=== PATIENT | female | born 1955 | race Caucasian/White ===

== ENCOUNTER 2022-07-30 14:05 | Inpatient (IN) | payer BC ==
[2022-07-30] MEDS ORDERED: Ondansetron 4 MG/2 ML SDV IVPUSH ONE (14:44)
[2022-07-30] MEDS ORDERED: Sodium Chloride 0.9% 10 ML Syringe FLUSH PRN (14:44)
[2022-07-30] MEDS ORDERED: Sodium Chloride 0.9% 1,000 ML IV SCH (14:45)
[2022-07-30] MEDS ORDERED: Sodium Chloride 0.9% 10 ML Syringe FLUSH ONE (15:04)
[2022-07-30] MEDS ORDERED: Iopamidol 612 MG/ML 100 ML Bottle IVPUSH ONE (15:04)
[2022-07-30 16:26] LABS: CORONAVIRUS COVID-19 NAA NEGATIVE (NEGATIVE)
[2022-07-30] MEDS ORDERED: Sodium Chloride 0.9% 1,000 ML IV ONE ×2 (16:34→17:57)
[2022-07-30] MEDS: Potassium Chloride 10 MEQ in Premix Bag 1 BAG IV SCH ×5 (16:48→22:32)
[2022-07-30] MEDS ORDERED: cefTRIAXone 1 GM in Sodium Chloride 0.9% 100 ML IV ONE (17:59)
[2022-07-30] MEDS ORDERED: oxyCODONE 5 MG Tab PO PRN (18:47)
[2022-07-30] MEDS ORDERED: Ondansetron 4 MG/2 ML SDV IV PRN (18:47)
[2022-07-30] MEDS ORDERED: Potassium Chloride 20 MEQ Tab.ER PO ONE (19:56)
[2022-07-30] MEDS: Heparin Sodium 5,000 Units/ML Vial SUBCUT SCH (21:10)
[2022-07-31] MEDS: Potassium Chloride 10 MEQ in Premix Bag 1 BAG IV SCH ×5 (01:14→13:40)
[2022-07-31] MEDS: Heparin Sodium 5,000 Units/ML Vial SUBCUT SCH (04:37)
[2022-07-31] MEDS ORDERED: Potassium Chloride 20 MEQ Tab.ER PO ONE ×2 (06:15→16:30)
[2022-07-31] MEDS ORDERED: Heparin Sodium 5,000 Units/ML Vial IVPUSH ONE (06:20)
[2022-07-31] MEDS ORDERED: Heparin Sodium/D5W 25,000 UNITS/500 ML BAG IV SCH (06:30)
[2022-07-31] MEDS: atorvaSTATin 40 MG Tab PO SCH (08:37)
[2022-07-31] MEDS: cefTRIAXone 1 GM in Sodium Chloride 0.9% 100 ML IV SCH (17:12)
[2022-07-31] MEDS: Acetaminophen 325 MG Tab PO PRN (17:51)
[2022-07-31] MEDS: Formoterol/Mometasone 200-5 MCG 8.8 GM Inhaler IH SCH (20:15)
[2022-07-31] MEDS: Pantoprazole 40 MG Tab.CR PO SCH (20:50)
[2022-07-31] MEDS: Metoprolol Tartrate 25 MG Tab PO SCH (20:50)
[2022-08-01] MEDS: Acetaminophen 325 MG Tab PO PRN ×2 (03:18→14:40)
[2022-08-01] MEDS: Formoterol/Mometasone 200-5 MCG 8.8 GM Inhaler IH SCH ×2 (08:23→22:39)
[2022-08-01] MEDS: atorvaSTATin 40 MG Tab PO SCH (09:39)
[2022-08-01] MEDS: Potassium Chloride 20 MEQ Tab.ER PO SCH ×2 (09:41→21:59)
[2022-08-01] MEDS: Metoprolol Tartrate 25 MG Tab PO SCH ×2 (09:41→21:59)
[2022-08-01] MEDS: cefTRIAXone 1 GM in Sodium Chloride 0.9% 100 ML IV SCH (17:55)
[2022-08-01] MEDS: Pantoprazole 40 MG Tab.CR PO SCH (21:59)
[2022-08-02] MEDS: Formoterol/Mometasone 200-5 MCG 8.8 GM Inhaler IH SCH (08:51)
[2022-08-02] MEDS: atorvaSTATin 40 MG Tab PO SCH (09:18)
[2022-08-02] MEDS: Metoprolol Tartrate 25 MG Tab PO SCH (09:19)
[2022-08-02] MEDS ORDERED: Potassium Chloride 20 MEQ Tab.ER PO ONE (09:30)
== END 2022-08-02 13:10 | disposition home or self-care (01) | DRG 469 ==
LOC: JD.ED 14:05 → JD.MS 18:35
PROVIDERS: ADMIT Internal Medicine; ATTEND Internal Medicine
DX: N17.9 Acute kidney failure, unspecified (principal); K85.90 Acute pancreatitis without necrosis or infection, unspecified; E87.6 Hypokalemia; E86.0 Dehydration; I21.4 Non-ST elevation (NSTEMI) myocardial infarction; N18.4 Chronic kidney disease, stage 4 (severe); Z20.822 Contact with and (suspected) exposure to COVID-19; E78.5 Hyperlipidemia, unspecified; F17.210 Nicotine dependence, cigarettes, uncomplicated; Z79.52 Long term (current) use of systemic steroids
CPT/HCPCS: 0241U; 36415; 71045; 71045-26; 74177; 74177-26; 80048; 80053; 81001; 82977; 83690; 83735; 83880; 84478; 84484; 85025; 85027; 85730; 86140; 87040; 87086; 93005; 93010; 93307; 94640; 94760; 94761; 97110-GP; 97162-GP; 97166-GO; 97530-GO; 97530-GP; 97535-GO; 99285; A9270-GY; J0696; J1644; J2405; J3480; J3490; J7030; Q9967

== ENCOUNTER 2022-08-03 10:53 | Inpatient (IN) | payer BC ==
[2022-08-03] MEDS ORDERED: Sodium Chloride 0.9% 10 ML Syringe FLUSH PRN (11:15)
[2022-08-03] MEDS ORDERED: Ondansetron 4 MG/2 ML SDV IVPUSH ONE (11:42)
[2022-08-03] MEDS ORDERED: Sodium Chloride 0.9% 1,000 ML IV STA (11:42)
[2022-08-03] MEDS ORDERED: 50% Dextrose in Water 50 ML Syringe IVPUSH ONE (12:14)
[2022-08-03] MEDS: Potassium Chloride 10 MEQ in Premix Bag 1 BAG IV SCH ×6 (12:20→23:14)
[2022-08-03] MEDS: Heparin Sodium 5,000 Units/ML Vial SUBCUT SCH ×2 (16:00→22:13)
[2022-08-03] MEDS ORDERED: Albuterol 6.7 GM Inhaler INH SCH (18:00)
[2022-08-03] MEDS: Albuterol 6.7 GM Inhaler INH SCH (20:35)
[2022-08-03] MEDS: Formoterol/Mometasone 200-5 MCG 8.8 GM Inhaler IH SCH (20:36)
[2022-08-03] MEDS ORDERED: Famotidine 20 MG/2 ML SDV IVPUSH SCH (21:00)
[2022-08-03] MEDS ORDERED: Sodium Chloride 0.9% 500 ML IV SCH (21:00)
[2022-08-03] MEDS: HYDROmorphone 0.5 MG/0.5 ML Syringe IVPUSH PRN (21:16)
[2022-08-04] MEDS: Dextrose 5% in Water 1,000 ML IV SCH ×3 (00:51→20:45)
[2022-08-04] MEDS: Potassium Chloride 10 MEQ in Premix Bag 1 BAG IV SCH ×2 (01:34→03:28)
[2022-08-04] MEDS: Albuterol 6.7 GM Inhaler INH SCH ×4 (03:36→20:16)
[2022-08-04] MEDS: HYDROmorphone 0.5 MG/0.5 ML Syringe IVPUSH PRN ×2 (05:48→17:25)
[2022-08-04] MEDS: Formoterol/Mometasone 200-5 MCG 8.8 GM Inhaler IH SCH ×2 (08:15→20:15)
[2022-08-04] MEDS: Famotidine 20 MG/2 ML SDV IVPUSH SCH (08:55)
[2022-08-04] MEDS: Heparin Sodium 5,000 Units/ML Vial SUBCUT SCH ×3 (08:58→22:00)
[2022-08-04] MEDS ORDERED: Potassium Chloride 20 MEQ Tab.ER PO ONE (09:34)
[2022-08-04] MEDS: Ondansetron 4 MG/2 ML SDV IV PRN (17:25)
[2022-08-05] MEDS: Albuterol 6.7 GM Inhaler INH SCH ×4 (03:46→20:47)
[2022-08-05] MEDS: Dextrose 5% in Water 1,000 ML IV SCH ×2 (05:22→16:30)
[2022-08-05] MEDS: HYDROmorphone 0.5 MG/0.5 ML Syringe IVPUSH PRN ×4 (06:02→23:57)
[2022-08-05] MEDS: Formoterol/Mometasone 200-5 MCG 8.8 GM Inhaler IH SCH ×2 (08:17→20:47)
[2022-08-05] MEDS: Famotidine 20 MG/2 ML SDV IVPUSH SCH (08:23)
[2022-08-05] MEDS: Heparin Sodium 5,000 Units/ML Vial SUBCUT SCH ×3 (08:24→22:16)
[2022-08-05] MEDS: Potassium Chloride 20 MEQ Tab.ER PO SCH ×3 (08:24→21:11)
[2022-08-05] MEDS ORDERED: Non-Formulary Medication 1 Each (Fluticasone/Vilanterol 1 EACH Blst.W.Dev) IH SCH (09:00)
[2022-08-05] MEDS: Ondansetron 4 MG/2 ML SDV IV PRN (13:04)
[2022-08-06] MEDS: Albuterol 6.7 GM Inhaler INH SCH ×4 (03:40→20:19)
[2022-08-06] MEDS: Dextrose 5% in Water 1,000 ML IV SCH (05:58)
[2022-08-06] MEDS: Heparin Sodium 5,000 Units/ML Vial SUBCUT SCH ×3 (09:10→22:15)
[2022-08-06] MEDS: Formoterol/Mometasone 200-5 MCG 8.8 GM Inhaler IH SCH ×2 (09:35→20:19)
[2022-08-06] MEDS: Potassium Chloride 20 MEQ Tab.ER PO SCH ×3 (11:52→20:32)
[2022-08-06] MEDS: HYDROmorphone 0.5 MG/0.5 ML Syringe IVPUSH PRN ×3 (11:52→23:08)
[2022-08-06] MEDS: Ondansetron 4 MG/2 ML SDV IV PRN ×3 (11:54→23:05)
[2022-08-06] MEDS: Famotidine 20 MG/2 ML SDV IVPUSH SCH (12:04)
[2022-08-06] MEDS ORDERED: metroNIDAZOLE 500 MG Tab PO SCH (16:30)
[2022-08-06] MEDS: Famotidine 20 MG Tab PO SCH (20:32)
[2022-08-06] MEDS: metroNIDAZOLE 500 MG Tab PO SCH (20:32)
[2022-08-06] MEDS: Levofloxacin 500 MG Tab PO SCH (20:32)
[2022-08-07] MEDS: Dextrose 5% in Water 1,000 ML IV SCH ×2 (02:01→14:36)
[2022-08-07] MEDS: Albuterol 6.7 GM Inhaler INH SCH ×4 (03:09→21:48)
[2022-08-07] MEDS: Heparin Sodium 5,000 Units/ML Vial SUBCUT SCH ×3 (06:48→22:02)
[2022-08-07] MEDS: Formoterol/Mometasone 200-5 MCG 8.8 GM Inhaler IH SCH ×2 (08:19→21:48)
[2022-08-07] MEDS: Famotidine 20 MG/2 ML SDV IVPUSH SCH (08:43)
[2022-08-07] MEDS: Potassium Chloride 20 MEQ Tab.ER PO SCH ×3 (08:43→21:00)
[2022-08-07] MEDS: metroNIDAZOLE 500 MG Tab PO SCH ×3 (08:43→21:00)
[2022-08-07] MEDS ORDERED: Promethazine 25 MG Tab PO PRN (09:37)
[2022-08-07] MEDS: Ondansetron 4 MG/2 ML SDV IV PRN ×2 (10:00→20:53)
[2022-08-07] MEDS: HYDROmorphone 0.5 MG/0.5 ML Syringe IVPUSH PRN ×2 (12:52→20:53)
[2022-08-07] MEDS: Sucralfate Suspension 1 GM/10 ML Cup PO SCH ×2 (18:12→21:58)
[2022-08-07] MEDS: Famotidine 20 MG Tab PO SCH (21:00)
[2022-08-07] MEDS: Levofloxacin 500 MG Tab PO SCH (21:01)
[2022-08-08] MEDS: Dextrose 5% in Water 1,000 ML IV SCH ×4 (00:20→23:08)
[2022-08-08] MEDS: Sucralfate Suspension 1 GM/10 ML Cup PO SCH ×6 (00:21→22:17)
[2022-08-08] MEDS: Albuterol 6.7 GM Inhaler INH SCH ×4 (02:37→21:25)
[2022-08-08] MEDS: Ondansetron 4 MG/2 ML SDV IV PRN ×3 (04:33→15:40)
[2022-08-08] MEDS ORDERED: Scopolamine 1.5 MG Transdermal Patch TRDERM PRN (06:30)
[2022-08-08] MEDS: Heparin Sodium 5,000 Units/ML Vial SUBCUT SCH ×3 (06:44→23:07)
[2022-08-08] MEDS: Famotidine 20 MG/2 ML SDV IVPUSH SCH ×2 (08:09→20:40)
[2022-08-08] MEDS: HYDROmorphone 0.5 MG/0.5 ML Syringe IVPUSH PRN (09:36)
[2022-08-08] MEDS: Formoterol/Mometasone 200-5 MCG 8.8 GM Inhaler IH SCH ×2 (10:26→21:25)
[2022-08-08] MEDS: metroNIDAZOLE 500 MG Tab PO SCH (11:45)
[2022-08-08] MEDS ORDERED: Pantoprazole 40 MG Vial IVPUSH ONE (11:49)
[2022-08-08] MEDS: Potassium Chloride 20 MEQ Tab.ER PO SCH (12:34)
[2022-08-08] MEDS: metroNIDAZOLE/Normal Saline 500 MG in Premix Bag 1 BAG IV SCH ×2 (12:35→20:41)
[2022-08-08] MEDS: Potassium Chloride 10 MEQ in Premix Bag 1 BAG IV SCH ×2 (12:35→15:29)
[2022-08-08] MEDS: Levofloxacin/Dextrose 5%-Water 500 MG in Premix Bag 1 BAG IV SCH (22:00)
[2022-08-09] MEDS: Ondansetron 4 MG/2 ML SDV IV PRN ×2 (02:12→08:55)
[2022-08-09] MEDS: Albuterol 6.7 GM Inhaler INH SCH ×4 (02:56→22:35)
[2022-08-09] MEDS: metroNIDAZOLE/Normal Saline 500 MG in Premix Bag 1 BAG IV SCH ×3 (04:24→20:33)
[2022-08-09] MEDS: Sucralfate Suspension 1 GM/10 ML Cup PO SCH ×3 (04:24→19:19)
[2022-08-09] MEDS: Heparin Sodium 5,000 Units/ML Vial SUBCUT SCH (06:42)
[2022-08-09] MEDS: Formoterol/Mometasone 200-5 MCG 8.8 GM Inhaler IH SCH ×2 (08:38→22:34)
[2022-08-09] MEDS: Famotidine 20 MG/2 ML SDV IVPUSH SCH ×2 (08:56→20:40)
[2022-08-09] MEDS ORDERED: Sodium Chloride 0.9% 10 ML Syringe FLUSH PRN (09:36)
[2022-08-09] MEDS ORDERED: Iopamidol 755 Mg/ML 100 ML Bottle IVPUSH ONE (09:36)
[2022-08-09] MEDS ORDERED: Sodium Chloride 0.9% 100 ML IV SCH (09:45)
[2022-08-09] MEDS ORDERED: Acetaminophen 325 MG Tab PO PRN (10:46)
[2022-08-09] MEDS: Dextrose 5% in Water 1,000 ML IV SCH ×2 (11:14→22:58)
[2022-08-09] MEDS ORDERED: Magnesium Sulfate (4.06 MEQ/ML) 5 GM/10 ML SDV IV STA (11:48)
[2022-08-09] MEDS ORDERED: Potassium Chloride 100 ML IV SCH (12:00)
[2022-08-09] MEDS ORDERED: LORazepam 2 MG/ML SDV IVPUSH ONE (12:25)
[2022-08-09] MEDS ORDERED: Potassium Chloride 10 MEQ in Premix Bag 1 BAG IV SCH (12:45)
[2022-08-09] MEDS ORDERED: Haloperidol Lactate 5 MG/ML SDV IVPUSH ONE (12:49)
[2022-08-09] MEDS ORDERED: [UNRECOGNIZED DRUG - OTHER] IV SCH ×2 (13:00→17:00)
[2022-08-09] MEDS ORDERED: POTASSIUM PHOSPHATE IV SCH ×2 (13:00→17:00)
[2022-08-09] MEDS ORDERED: AA 5%/Calcium/D20W/Lytes 1,000 ML IV SCH ×2 (14:00→17:00)
[2022-08-09] MEDS ORDERED: Magnesium Sulfate/Water 2 GM in Premix Bag 1 BAG IV SCH (16:15)
[2022-08-09] MEDS: Levofloxacin/Dextrose 5%-Water 500 MG in Premix Bag 1 BAG IV SCH (20:41)
[2022-08-09] MEDS: Ondansetron 8 MG in Sodium Chloride 0.9% 50 ML IV PRN (22:53)
[2022-08-10] MEDS: HYDROmorphone 0.5 MG/0.5 ML Syringe IVPUSH PRN ×3 (00:49→23:42)
[2022-08-10] MEDS: metroNIDAZOLE/Normal Saline 500 MG in Premix Bag 1 BAG IV SCH ×3 (03:17→19:50)
[2022-08-10] MEDS: Albuterol 6.7 GM Inhaler INH SCH ×4 (03:47→20:10)
[2022-08-10] MEDS ORDERED: [UNRECOGNIZED DRUG - OTHER] IV SCH ×4 (08:00)
[2022-08-10] MEDS ORDERED: POTASSIUM PHOSPHATE IV SCH ×4 (08:00)
[2022-08-10] MEDS ORDERED: POTASSIUM PHOSPHATES IV ONE (08:00)
[2022-08-10] MEDS ORDERED: SODIUM CHLORIDE IV ONE (08:00)
[2022-08-10] MEDS: Formoterol/Mometasone 200-5 MCG 8.8 GM Inhaler IH SCH ×2 (08:29→20:10)
[2022-08-10] MEDS ORDERED: Ondansetron 4 MG/2 ML SDV ONE (09:13)
[2022-08-10] MEDS: Famotidine 20 MG/2 ML SDV IVPUSH SCH ×2 (09:20→20:55)
[2022-08-10] MEDS: Ondansetron 8 MG in Sodium Chloride 0.9% 50 ML IV PRN (09:32)
[2022-08-10] MEDS: Pantoprazole 40 MG Vial IVPUSH SCH (10:03)
[2022-08-10] MEDS: Dextrose 5% in Water 1,000 ML IV SCH ×2 (10:39→15:37)
[2022-08-10] MEDS ORDERED: Potassium Chloride 100 ML ONE (12:23)
[2022-08-10] MEDS ORDERED: AA 5%/Calcium/D20W/Lytes 1,000 ML IV SCH (13:00)
[2022-08-10] MEDS: Potassium Chloride 10 MEQ in Premix Bag 1 BAG IV SCH ×4 (14:04→17:03)
[2022-08-10] MEDS: AA 5%/Calcium/D20W/Lytes 1,000 ML IV SCH (15:36)
[2022-08-10] MEDS: Ondansetron 4 MG/2 ML SDV IVPUSH PRN ×2 (16:57→21:00)
[2022-08-10] MEDS: Levofloxacin/Dextrose 5%-Water 500 MG in Premix Bag 1 BAG IV SCH (20:54)
[2022-08-11] MEDS: Albuterol 6.7 GM Inhaler INH SCH ×6 (03:43→20:12)
[2022-08-11] MEDS: metroNIDAZOLE/Normal Saline 500 MG in Premix Bag 1 BAG IV SCH ×3 (04:01→20:35)
[2022-08-11] MEDS: Pantoprazole 40 MG Vial IVPUSH SCH (08:05)
[2022-08-11] MEDS: Famotidine 20 MG/2 ML SDV IVPUSH SCH ×2 (08:08→20:35)
[2022-08-11] MEDS: AA 5%/Calcium/D20W/Lytes 1,000 ML IV SCH ×2 (08:11→20:49)
[2022-08-11] MEDS: Formoterol/Mometasone 200-5 MCG 8.8 GM Inhaler IH SCH ×3 (08:32→20:12)
[2022-08-11] MEDS: Ondansetron 4 MG/2 ML SDV IVPUSH PRN ×3 (09:27→16:50)
[2022-08-11] MEDS ORDERED: Magnesium Sulfate/Water 2 GM in Premix Bag 1 BAG IV ONE (10:43)
[2022-08-11] MEDS ORDERED: POTASSIUM PHOSPHATES IV ONE (11:00)
[2022-08-11] MEDS ORDERED: SODIUM CHLORIDE IV ONE (11:00)
[2022-08-11] MEDS ORDERED: Potassium Phosphates 30 MMOLE in Sodium Chloride 0.9% 500 ML IV SCH ×4 (12:00)
[2022-08-11] MEDS ORDERED: Potassium Phosphates 30 MMOLE in Sodium Chloride 0.9% 250 ML IV SCH (12:00)
[2022-08-11] MEDS: Potassium Chloride 10 MEQ in Premix Bag 1 BAG IV SCH ×6 (13:52→22:22)
[2022-08-11] MEDS: Dextrose 5% in Water 1,000 ML IV SCH ×2 (16:12→16:13)
[2022-08-11] MEDS: Levofloxacin/Dextrose 5%-Water 500 MG in Premix Bag 1 BAG IV SCH (20:35)
[2022-08-12] MEDS: Potassium Chloride 10 MEQ in Premix Bag 1 BAG IV SCH ×2 (01:08→02:29)
[2022-08-12] MEDS: Albuterol 6.7 GM Inhaler INH SCH ×4 (03:12→20:18)
[2022-08-12] MEDS: metroNIDAZOLE/Normal Saline 500 MG in Premix Bag 1 BAG IV SCH ×3 (03:37→19:35)
[2022-08-12] MEDS: AA 5%/Calcium/D20W/Lytes 1,000 ML IV SCH ×2 (09:03→21:38)
[2022-08-12] MEDS: Pantoprazole 40 MG Vial IVPUSH SCH (09:06)
[2022-08-12] MEDS: Dextrose 5% in Water 1,000 ML IV SCH (09:06)
[2022-08-12] MEDS: Ondansetron 4 MG/2 ML SDV IVPUSH PRN ×2 (09:09→14:23)
[2022-08-12] MEDS: Enoxaparin 40 MG/0.4 ML Syringe SUBCUT SCH (09:09)
[2022-08-12] MEDS: Formoterol/Mometasone 200-5 MCG 8.8 GM Inhaler IH SCH ×2 (09:54→20:21)
[2022-08-12] MEDS: Fat Emulsion 500 ML IV SCH (13:18)
[2022-08-12] MEDS ORDERED: Sodium Chloride 0.45% 1,000 ML IV SCH (14:15)
[2022-08-12] MEDS: Nystatin Susp 100,000 Unit/ML 5 ML UD Cup PO SCH ×2 (16:49→21:38)
[2022-08-12] MEDS: Levofloxacin/Dextrose 5%-Water 500 MG in Premix Bag 1 BAG IV SCH (21:37)
[2022-08-13] MEDS: Albuterol 6.7 GM Inhaler INH SCH ×4 (02:39→20:51)
[2022-08-13] MEDS: metroNIDAZOLE/Normal Saline 500 MG in Premix Bag 1 BAG IV SCH ×3 (04:29→20:58)
[2022-08-13] MEDS ORDERED: Potassium Phosphates 30 MMOLE in Sodium Chloride 0.9% 500 ML IV SCH (07:30)
[2022-08-13] MEDS ORDERED: Magnesium Sulfate/Water 2 GM in Premix Bag 1 BAG IV ONE (08:00)
[2022-08-13] MEDS: Formoterol/Mometasone 200-5 MCG 8.8 GM Inhaler IH SCH ×2 (08:09→20:51)
[2022-08-13] MEDS: Potassium Chloride 10 MEQ in Premix Bag 1 BAG IV SCH ×4 (08:12→11:55)
[2022-08-13] MEDS ORDERED: Furosemide 20 MG/2 ML VIAL IVPUSH ONE (08:15)
[2022-08-13] MEDS: Nystatin Susp 100,000 Unit/ML 5 ML UD Cup PO SCH ×4 (08:27→22:23)
[2022-08-13] MEDS: Pantoprazole 40 MG Vial IVPUSH SCH (08:27)
[2022-08-13] MEDS: Enoxaparin 40 MG/0.4 ML Syringe SUBCUT SCH (08:31)
[2022-08-13] MEDS ORDERED: MVI IV ONE ×4 (09:00)
[2022-08-13] MEDS ORDERED: VITAMIN K IV ONE ×4 (09:00)
[2022-08-13] MEDS ORDERED: [UNRECOGNIZED DRUG - OTHER] IV ONE ×4 (09:00)
[2022-08-13] MEDS ORDERED: THIAMINE IV ONE ×4 (09:00)
[2022-08-13] MEDS ORDERED: FOLIC ACID IV ONE ×4 (09:00)
[2022-08-13] MEDS: AA 5%/Calcium/D20W/Lytes 1,000 ML IV SCH (11:57)
[2022-08-13] MEDS ORDERED: Propofol 200 MG/20 ML SDV ONE (15:36)
[2022-08-13] MEDS: Levofloxacin/Dextrose 5%-Water 500 MG in Premix Bag 1 BAG IV SCH (22:23)
[2022-08-14] MEDS: AA 5%/Calcium/D20W/Lytes 1,000 ML IV SCH ×2 (00:22→12:39)
[2022-08-14] MEDS: Albuterol 6.7 GM Inhaler INH SCH ×4 (02:25→20:13)
[2022-08-14] MEDS: metroNIDAZOLE/Normal Saline 500 MG in Premix Bag 1 BAG IV SCH ×2 (03:34→11:52)
[2022-08-14] MEDS: Nystatin Susp 100,000 Unit/ML 5 ML UD Cup PO SCH ×4 (08:12→20:06)
[2022-08-14] MEDS: Potassium Chloride 10 MEQ in Premix Bag 1 BAG IV SCH ×6 (08:13→13:58)
[2022-08-14] MEDS: Enoxaparin 40 MG/0.4 ML Syringe SUBCUT SCH (08:13)
[2022-08-14] MEDS: Formoterol/Mometasone 200-5 MCG 8.8 GM Inhaler IH SCH ×2 (09:00→20:14)
[2022-08-14] MEDS: Pantoprazole 40 MG Vial IVPUSH SCH (09:50)
[2022-08-14] MEDS ORDERED: POTASSIUM CHLORIDE IV SCH ×5 (12:30)
[2022-08-14] MEDS ORDERED: [UNRECOGNIZED DRUG - OTHER] IV SCH ×5 (12:30)
[2022-08-14] MEDS ORDERED: VITAMIN K IV SCH ×5 (12:30)
[2022-08-14] MEDS ORDERED: FOLIC ACID IV SCH ×5 (12:30)
[2022-08-14] MEDS ORDERED: MVI IV SCH ×5 (12:30)
[2022-08-14] MEDS ORDERED: Potassium Phosphates 30 MMOLE in Sodium Chloride 0.9% 500 ML IV SCH (14:00)
[2022-08-14] MEDS: Fat Emulsion 500 ML IV SCH (14:04)
[2022-08-14] MEDS ORDERED: Potassium Phosphates 30 MMOLE in Sodium Chloride 0.9% 500 ML IV ONE (16:00)
[2022-08-15] MEDS: AA 5%/Calcium/D20W/Lytes 1,000 ML IV SCH ×2 (01:25→14:56)
[2022-08-15] MEDS: Albuterol 6.7 GM Inhaler INH SCH ×4 (06:53→21:50)
[2022-08-15] MEDS ORDERED: Magnesium Sulfate/Water 2 GM in Premix Bag 1 BAG IV ONE (08:30)
[2022-08-15] MEDS: Formoterol/Mometasone 200-5 MCG 8.8 GM Inhaler IH SCH ×2 (09:19→21:50)
[2022-08-15] MEDS: VITAMIN K IV SCH ×4 (09:55)
[2022-08-15] MEDS: [UNRECOGNIZED DRUG - OTHER] IV SCH ×4 (09:55)
[2022-08-15] MEDS: MVI IV SCH ×4 (09:55)
[2022-08-15] MEDS: THIAMINE IV SCH ×4 (09:55)
[2022-08-15] MEDS: FOLIC ACID IV SCH ×4 (09:55)
[2022-08-15] MEDS: Pantoprazole 40 MG Vial IVPUSH SCH (09:56)
[2022-08-15] MEDS: Megestrol Susp 40 MG/ML 10 ML UD Cup PO SCH (09:57)
[2022-08-15] MEDS: Nystatin Susp 100,000 Unit/ML 5 ML UD Cup PO SCH ×4 (09:57→20:38)
[2022-08-15] MEDS: Enoxaparin 40 MG/0.4 ML Syringe SUBCUT SCH (09:57)
[2022-08-16] MEDS: Albuterol 6.7 GM Inhaler INH SCH ×4 (03:05→21:42)
[2022-08-16] MEDS: AA 5%/Calcium/D20W/Lytes 1,000 ML IV SCH ×2 (04:43→18:11)
[2022-08-16] MEDS: Formoterol/Mometasone 200-5 MCG 8.8 GM Inhaler IH SCH ×2 (09:21→21:42)
[2022-08-16] MEDS: Nystatin Susp 100,000 Unit/ML 5 ML UD Cup PO SCH ×4 (10:04→20:44)
[2022-08-16] MEDS: Megestrol Susp 40 MG/ML 10 ML UD Cup PO SCH (10:04)
[2022-08-16] MEDS: Enoxaparin 40 MG/0.4 ML Syringe SUBCUT SCH (10:05)
[2022-08-16] MEDS: Pantoprazole 40 MG Vial IVPUSH SCH (10:05)
[2022-08-16] MEDS ORDERED: FOLIC ACID IV ONE ×5 (12:00)
[2022-08-16] MEDS ORDERED: VITAMIN K IV ONE ×5 (12:00)
[2022-08-16] MEDS ORDERED: [UNRECOGNIZED DRUG - OTHER] IV ONE ×5 (12:00)
[2022-08-16] MEDS ORDERED: MVI IV ONE ×5 (12:00)
[2022-08-16] MEDS ORDERED: POTASSIUM CHLORIDE IV ONE ×5 (12:00)
[2022-08-16] MEDS: VITAMIN K IV SCH ×4 (12:09)
[2022-08-16] MEDS: MVI IV SCH ×4 (12:09)
[2022-08-16] MEDS: FOLIC ACID IV SCH ×4 (12:09)
[2022-08-16] MEDS: THIAMINE IV SCH ×4 (12:09)
[2022-08-16] MEDS: [UNRECOGNIZED DRUG - OTHER] IV SCH ×4 (12:09)
[2022-08-16] MEDS: Fat Emulsion 500 ML IV SCH (15:47)
[2022-08-17] MEDS: Albuterol 6.7 GM Inhaler INH SCH ×5 (03:13→20:05)
[2022-08-17] MEDS: AA 5%/Calcium/D20W/Lytes 1,000 ML IV SCH (08:30)
[2022-08-17] MEDS: Enoxaparin 40 MG/0.4 ML Syringe SUBCUT SCH (08:42)
[2022-08-17] MEDS: Pantoprazole 40 MG Vial IVPUSH SCH (08:42)
[2022-08-17] MEDS: Nystatin Susp 100,000 Unit/ML 5 ML UD Cup PO SCH ×4 (08:42→20:02)
[2022-08-17] MEDS: Megestrol Susp 40 MG/ML 10 ML UD Cup PO SCH (08:42)
[2022-08-17] MEDS: Formoterol/Mometasone 200-5 MCG 8.8 GM Inhaler IH SCH ×2 (08:50→20:05)
[2022-08-17] MEDS ORDERED: POTASSIUM CHLORIDE IV ONE ×5 (12:00)
[2022-08-17] MEDS ORDERED: MVI IV ONE ×5 (12:00)
[2022-08-17] MEDS ORDERED: [UNRECOGNIZED DRUG - OTHER] IV ONE ×5 (12:00)
[2022-08-17] MEDS ORDERED: VITAMIN K IV ONE ×5 (12:00)
[2022-08-17] MEDS ORDERED: FOLIC ACID IV ONE ×5 (12:00)
[2022-08-18] MEDS: AA 5%/Calcium/D20W/Lytes 1,000 ML IV SCH ×2 (00:01→13:52)
[2022-08-18] MEDS: Albuterol 6.7 GM Inhaler INH SCH ×5 (03:21→20:13)
[2022-08-18] MEDS: Formoterol/Mometasone 200-5 MCG 8.8 GM Inhaler IH SCH ×3 (08:16→20:13)
[2022-08-18] MEDS: Enoxaparin 40 MG/0.4 ML Syringe SUBCUT SCH (08:48)
[2022-08-18] MEDS: Nystatin Susp 100,000 Unit/ML 5 ML UD Cup PO SCH ×4 (08:48→20:08)
[2022-08-18] MEDS: Megestrol Susp 40 MG/ML 10 ML UD Cup PO SCH (08:48)
[2022-08-18] MEDS: Pantoprazole 40 MG Vial IVPUSH SCH (08:49)
[2022-08-18] MEDS ORDERED: VITAMIN K IV ONE ×4 (12:00)
[2022-08-18] MEDS ORDERED: MVI IV ONE ×4 (12:00)
[2022-08-18] MEDS ORDERED: [UNRECOGNIZED DRUG - OTHER] IV ONE ×4 (12:00)
[2022-08-18] MEDS ORDERED: THIAMINE IV ONE ×4 (12:00)
[2022-08-18] MEDS ORDERED: FOLIC ACID IV ONE ×4 (12:00)
[2022-08-18] MEDS: Haloperidol 0.5 MG Tab PO SCH (20:08)
[2022-08-19] MEDS: Albuterol 6.7 GM Inhaler INH SCH ×4 (03:44→21:43)
[2022-08-19] MEDS: AA 5%/Calcium/D20W/Lytes 1,000 ML IV SCH ×2 (03:46→15:48)
[2022-08-19] MEDS: Pantoprazole 40 MG Vial IVPUSH SCH (09:06)
[2022-08-19] MEDS: Megestrol Susp 40 MG/ML 10 ML UD Cup PO SCH (09:07)
[2022-08-19] MEDS: Enoxaparin 40 MG/0.4 ML Syringe SUBCUT SCH (09:07)
[2022-08-19] MEDS: Haloperidol 0.5 MG Tab PO SCH ×2 (09:08→19:13)
[2022-08-19] MEDS: Nystatin Susp 100,000 Unit/ML 5 ML UD Cup PO SCH ×3 (09:17→16:06)
[2022-08-19] MEDS: Formoterol/Mometasone 200-5 MCG 8.8 GM Inhaler IH SCH ×2 (09:42→21:43)
[2022-08-19] MEDS: Fat Emulsion 500 ML IV SCH (15:48)
[2022-08-20] MEDS: Albuterol 6.7 GM Inhaler INH SCH ×2 (02:59→09:11)
[2022-08-20] MEDS ORDERED: Pantoprazole 40 MG Tab.CR PO SCH (06:00)
[2022-08-20] MEDS: Megestrol Susp 40 MG/ML 10 ML UD Cup PO SCH (08:02)
[2022-08-20] MEDS: Enoxaparin 40 MG/0.4 ML Syringe SUBCUT SCH (08:03)
[2022-08-20] MEDS: Haloperidol 0.5 MG Tab PO SCH (08:03)
[2022-08-20] MEDS: Formoterol/Mometasone 200-5 MCG 8.8 GM Inhaler IH SCH (09:10)
== END 2022-08-20 10:16 | disposition home or self-care (01) ==
LOC: JD.ED 10:53 → JD.MS 15:00 → JD.ICU 08-09 15:40 → JD.MS 08-14 14:42
PROVIDERS: ADMIT Internal Medicine; ATTEND Pediatrics
PROC: 02HV33Z Insertion of Infusion Device into Superior Vena Cava, Percutaneous Approach (ICD-10-PCS; 2022-08-09)
PROC: 0DB38ZX Excision of Lower Esophagus, Via Natural or Artificial Opening Endoscopic, Diagnostic (ICD-10-PCS; principal; 2022-08-13)
PROC: 0DB68ZX Excision of Stomach, Via Natural or Artificial Opening Endoscopic, Diagnostic (ICD-10-PCS; 2022-08-13)
PROC: 0DB18ZX Excision of Upper Esophagus, Via Natural or Artificial Opening Endoscopic, Diagnostic (ICD-10-PCS; 2022-08-13)
DX: K80.50 Calculus of bile duct without cholangitis or cholecystitis without obstruction (principal); E43 Unspecified severe protein-calorie malnutrition; G93.40 Encephalopathy, unspecified; K29.00 Acute gastritis without bleeding; R53.81 Other malaise; Z66 Do not resuscitate; J44.9 Chronic obstructive pulmonary disease, unspecified; R74.01 Elevation of levels of liver transaminase levels; E87.6 Hypokalemia; E86.0 Dehydration; N18.4 Chronic kidney disease, stage 4 (severe); E78.5 Hyperlipidemia, unspecified; E83.42 Hypomagnesemia; K57.90 Diverticulosis of intestine, part unspecified, without perforation or abscess without bleeding; E83.39 Other disorders of phosphorus metabolism; N28.9 Disorder of kidney and ureter, unspecified; K44.9 Diaphragmatic hernia without obstruction or gangrene; K21.9 Gastro-esophageal reflux disease without esophagitis; I12.9 Hypertensive chronic kidney disease with stage 1 through stage 4 chronic kidney disease, or unspecified chronic kidney disease; R51.9 Headache, unspecified; D63.1 Anemia in chronic kidney disease; Z68.24 Body mass index [BMI] 24.0-24.9, adult; Z79.899 Other long term (current) drug therapy; I25.2 Old myocardial infarction; Z90.710 Acquired absence of both cervix and uterus; Z90.49 Acquired absence of other specified parts of digestive tract; Z87.891 Personal history of nicotine dependence
CPT/HCPCS: 00731; 36415; 36600; 70450; 70450-26; 70551; 70551-26; 71045; 71045-26; 74019; 74019-26; 74175; 74175-26; 74181; 74181-26; 76705; 76705-26; 78227; 78227-26; 80048; 80053; 81001; 82140; 82150; 82306; 82550; 82570; 82746; 82803; 82947; 82977; 83690; 83735; 83880; 84100; 84300; 84484; 85007; 85025; 85027; 85379; 85652; 86140; 93005; 94640; 94760; 94761; 96365; 96366; 96375; 97110-GP; 97112-GP; 97116-GP; 97162-GP; 97166-GO; 97530-GO; 97530-GP; 97535-GO; 99285; 99285-25; A9270-GY; A9537; C1751; C9113; J1170; J1630; J1644; J1650; J1940; J1956; J2060; J2405; J2704; J3411; J3475; J3480; J3490; J7030; J7040; J7042; J7050; J7060; J8597; Q9967

== ENCOUNTER 2025-01-15 09:38 | Emergency (ER) | payer MEDICARE, OTHER ==
[2025-01-15 10:29] LABS: BASOPHILS ABSOLUTE AUTO 0.0 K/mm3 (0.0-0.2); BASOPHILS PERCENT AUTO 0.3 % (0.0-1.0); EOSINOPHILS ABSOLUTE AUTO 0.1 K/mm3 (0.0-0.4); EOSINOPHILS PERCENT AUTO 0.7 % (0.0-6.0); IMMATURE GRAN ABSOLUTE AUTO 0.06 K/mm3 (0.00-0.05); IMMATURE GRAN PERCENT AUTO 0.5 % (0.0-0.4); LYMPHOCYTES ABSOLUTE AUTO 0.9 K/mm3 (1.0-4.8); LYMPHOCYTES PERCENT AUTO 8.2 % (24.0-44.0); MEAN PLATELET VOLUME 9.9 fl (9.4-12.3); MONOCYTES ABSOLUTE AUTO 0.9 K/mm3 (0.0-0.8); MONOCYTES PERCENT AUTO 7.8 % (0.0-8.0); NEUTROPHILS ABSOLUTE AUTO 9.4 K/mm3 (1.8-7.7); NEUTROPHILS PERCENT AUTO 82.5 % (41.0-71.0); NRBC ABSOLUTE 0.00 (0.00-0.02); NRBC PERCENT 0.0 % (0.0-0.2); PLATELET COUNT,PLT 182 K/mm3 (150-400); RED BLOOD CELL COUNT 6.40 M/mm3 (4.10-5.30); WHITE BLOOD CELL COUNT,WBC 11.35 K/mm3 (3.9-11.3)
[2025-01-15 10:42] LABS: INR 1.08
[2025-01-15 10:46] LABS: A/G RATIO 0.9 (1-2); BILIRUBIN TOTAL 0.9 mg/dL (0.2-1.0); BLOOD UREA NITROGEN,BUN 16.0 mg/dL (7-18); CARBON DIOXIDE,CO2 29.0 mEq/L (21-32); CHLORIDE,CL 100.0 mEq/L (98-107); CREATINE KINASE,CK 21.0 U/L (26-192); CREATININE 0.8 mg/dL (0.55-1.02); EST CRCL DRUG DOSING (CG) 56.45 mL/min; ESTIMATED GFR 81.0 mL/min (>60); GLUCOSE RANDOM 93.0 mg/dL (70-99); POTASSIUM,K 4.3 mEq/L (3.5-5.1); PROTEIN TOTAL,TP 6.9 g/dl (6.4-8.2); SODIUM,NA 133.0 mEq/L (136-145)
[2025-01-15 10:53] LABS: ALANINE AMINOTRANSFERASE,ALT 10.0 U/L (14-59); ASPARTATE AMNIOTRANSFERASE,AST 10.0 U/L (15-37)
[2025-01-15 11:12] LABS: APPEARANCE,URINE CLEAR (Clear); GLUCOSE,URINE NEGATIVE (Negative); OCCULT BLOOD,URINE TRACE-INTACT (Negative)
[2025-01-15 11:24] LABS: BUPRENORPHINE SCREEN,URINE NEGATIVE (CUTOFF=10); METHADONE SCREEN, URINE NEGATIVE (CUTOFF=200); METHAMPHETAMINES SCREEN, URINE NEGATIVE (CUTOFF=500); OXYCODONE SCREEN,URINE NEGATIVE (CUT0FF=100); THC SCREEN,URINE 20 NG/ML NEGATIVE (CUTOFF=50)
[2025-01-15 11:26] LABS: AMPHETAMINES SCREEN, URINE NEGATIVE (CUTOFF=500)
== END 2025-01-15 11:15 | disposition home or self-care (01) ==
LOC: JD.ED 09:38
DX: S00.03XA Contusion of scalp, initial encounter (principal); I25.2 Old myocardial infarction; K21.9 Gastro-esophageal reflux disease without esophagitis; J44.9 Chronic obstructive pulmonary disease, unspecified; E78.00 Pure hypercholesterolemia, unspecified; F17.210 Nicotine dependence, cigarettes, uncomplicated; Z90.49 Acquired absence of other specified parts of digestive tract; Z90.710 Acquired absence of both cervix and uterus; Z79.51 Long term (current) use of inhaled steroids; Z79.899 Other long term (current) drug therapy; W01.198A Fall on same level from slipping, tripping and stumbling with subsequent striking against other object, initial encounter
CPT/HCPCS: 36415; 70450; 70450-26; 80053; 80306; 81001; 82550; 83735; 85025; 85610; 99284

== ENCOUNTER 2025-01-28 10:55 | Emergency (ER) | payer MEDICARE, OTHER ==
[2025-01-28 11:50] LABS: BASOPHILS ABSOLUTE AUTO 0.0 K/mm3 (0.0-0.2); BASOPHILS PERCENT AUTO 0.4 % (0.0-1.0); EOSINOPHILS ABSOLUTE AUTO 0.0 K/mm3 (0.0-0.4); EOSINOPHILS PERCENT AUTO 0.3 % (0.0-6.0); IMMATURE GRAN ABSOLUTE AUTO 0.03 K/mm3 (0.00-0.05); IMMATURE GRAN PERCENT AUTO 0.3 % (0.0-0.4); LYMPHOCYTES ABSOLUTE AUTO 1.0 K/mm3 (1.0-4.8); LYMPHOCYTES PERCENT AUTO 10.4 % (24.0-44.0); MEAN PLATELET VOLUME 11.1 fl (9.4-12.3); MONOCYTES ABSOLUTE AUTO 0.9 K/mm3 (0.0-0.8); MONOCYTES PERCENT AUTO 8.8 % (0.0-8.0); NEUTROPHILS ABSOLUTE AUTO 7.7 K/mm3 (1.8-7.7); NEUTROPHILS PERCENT AUTO 79.8 % (41.0-71.0); NRBC ABSOLUTE 0.00 (0.00-0.02); NRBC PERCENT 0.0 % (0.0-0.2); PLATELET COUNT,PLT 168 K/mm3 (150-400); RED BLOOD CELL COUNT 6.28 M/mm3 (4.10-5.30); WHITE BLOOD CELL COUNT,WBC 9.66 K/mm3 (3.9-11.3)
[2025-01-28 11:55] LABS: BASE EXCESS ARTERIAL 6.1 (-2-2.0); BICARBONATE,ARTERIAL 29.6 meq/L (22.0-26.0); O2 SATURATION ARTERIAL 99.3 % (96.0-97.0); PCO2 ARTERIAL 38.0 mmHg (35.0-45.0); PO2 ARTERIAL 82.0 mmHg (80.0-100.0)
[2025-01-28 11:56] LABS: PATIENT RESPIRATORY RATE 18.0 /MIN
[2025-01-28 11:59] LABS: INR 1.03
[2025-01-28 12:26] LABS: A/G RATIO 0.6 (1-2); ALANINE AMINOTRANSFERASE,ALT 10.0 U/L (14-59); ASPARTATE AMNIOTRANSFERASE,AST 14.0 U/L (15-37); BILIRUBIN TOTAL 0.8 mg/dL (0.2-1.0); BLOOD UREA NITROGEN,BUN 19.0 mg/dL (7-18); CARBON DIOXIDE,CO2 27.0 mEq/L (21-32); CHLORIDE,CL 95.0 mEq/L (98-107); CREATINE KINASE,CK 44.0 U/L (26-192); CREATININE 1.0 mg/dL (0.55-1.02); EST CRCL DRUG DOSING (CG) 45.16 mL/min; ESTIMATED GFR 62.0 mL/min (>60); GLUCOSE RANDOM 83.0 mg/dL (70-99); POTASSIUM,K 3.9 mEq/L (3.5-5.1); PROTEIN TOTAL,TP 7.0 g/dl (6.4-8.2); SODIUM,NA 134.0 mEq/L (136-145); TROPONIN I HIGH SENSITIVITY 16.0 pg/mL (<=51)
== END 2025-01-28 13:15 | disposition home or self-care (01) ==
LOC: JD.ED 10:55
DX: J44.0 Chronic obstructive pulmonary disease with (acute) lower respiratory infection (principal); J20.9 Acute bronchitis, unspecified; Z79.899 Other long term (current) drug therapy; E78.00 Pure hypercholesterolemia, unspecified; K21.9 Gastro-esophageal reflux disease without esophagitis; Z90.49 Acquired absence of other specified parts of digestive tract; Z90.710 Acquired absence of both cervix and uterus; F17.200 Nicotine dependence, unspecified, uncomplicated
CPT/HCPCS: 36415; 36600; 71045; 71045-26; 80053; 82550; 82803; 83690; 83735; 83880; 84484; 85025; 85610; 93005; 99285